=== PATIENT | female | born 2000 | race Hispanic/Latino ===

== ENCOUNTER 2023-09-03 12:46 | Emergency (ER) | payer OTHER ==
[~2023-09-03] VITALS: Ht 170.2 cm; Wt 86.2 kg
[2023-09-03] MEDS: ACETAMINOPHEN 500 MG TABLET PO ONE (13:59)
[2023-09-03] MEDS: DEXAMETHASONE SOD PHOSPHATE 4 MG/ML 1ML VIAL IM ONE (13:59)
[2023-09-03 14:59] VITALS: TEMP 98.8
[2023-09-03] MEDS ORDERED: CYCL-309 PO (15:56)
[2023-09-03] MEDS ORDERED: IBUP-2077 PO (15:56)
[2023-09-03] MEDS ORDERED: METH4TAB3 PO (15:56)
[2023-09-03 16:05] VITALS: BP 109/61; PULSE 76; RESP 18; O2SAT 97
== END 2023-09-03 16:11 | disposition home or self-care (01) ==
LOC: EDH 12:46
DX: M54.40 Lumbago with sciatica, unspecified side (principal); Z98.890 Other specified postprocedural states
CPT/HCPCS: 99284; 81025; 72100; 96372; J1100

== ENCOUNTER 2023-10-27 17:22 | Emergency (ER) | payer BC, OTHER ==
[~2023-10-27] VITALS: Ht 172.7 cm; Wt 90.7 kg
[~2023-10-27 17:22] MED LIST: CYCL-309 PO; IBUP-2077 PO; METH4TAB3 PO
[2023-10-27] MEDS: ALBUTEROL 0.083% 2.5 MG/3 ML INH IH ONE (17:51)
[2023-10-27 17:52] VITALS: PULSE 87; RESP 16
[2023-10-27] MEDS: SOLU-MEDROL 125MG VIAL IM ONE (18:04)
[2023-10-27] MEDS ORDERED: AUD IH (18:41)
[2023-10-27 18:56] VITALS: BP 119/78; PULSE 90; RESP 16; O2SAT 98
== END 2023-10-27 18:57 | disposition home or self-care (01) ==
LOC: EDH 17:22
DX: J98.01 Acute bronchospasm (principal); F17.200 Nicotine dependence, unspecified, uncomplicated
CPT/HCPCS: 87426; 96372; 99283; 94640; J2930